=== PATIENT | male | born 1975 | race Caucasian/White ===

== ENCOUNTER 2016-09-06 16:28 | Emergency (ER) | payer OTHER ==
[2016-09-06 16:29] VITALS: BP 124/78; PULSE 85; RESP 16; TEMP 98.6; O2SAT 95
--- NOTE | 2016-09-06 16:48 | PD ---
Physical Exam Date Seen by Provider: Sep 06, 2016 Time Seen by Provider: 16:42 Data Data Last Documented VS Vital Signs Date Time Temp Pulse Resp B/P Pulse Ox O2 Delivery O2 Flow Rate FiO2 09/06/16 16:29 98.6 85 16 124/78 95 MDM Supervised Visit with JOSUÉ: No Narrative Course 41 YO M with complaint of rash behind the knees x 4 days. PATEL, back pain, L groin pain since this morning. Patient was in [facility] 08/27-. Vitals reviewed. Patient seen in triage, awaiting bed placement. Maria Alejandra Fagan Sep 06, 2016 16:48
[2016-09-06] MEDS ORDERED: SODIUM CHLOR 0.9% 1000 ML INJ 1,000 ML IV SCH (17:40)
--- NOTE | 2016-09-06 17:47 | PD ---
HPI Chief Complaint: Skin Problem Time Seen by Provider: 17:35 Travel History International Travel<30 days: No Contact w/Intl Traveler<30days: No Traveled to known affect area: No History of Present Illness HPI 41-year-old male presents for evaluation of rash. The patient was surfing in [facility] from August 27 the . He was surfing several hours a day, he reports that his board shorts were rubbing against the back of both knees. He developed a rash there for to 5 days ago which has been pruritic. Over the past few days it has become painful. He's also been having myalgias, chills and a headache. He was seen by his primary care physician Dr. Coronel today who prescribed him doxycycline and Levaquin, he has not yet started them. A physician friend of his recommended that he come to the emergency room for evaluation and this is what prompted the visit today. He has been having some pain associated with the lymph nodes in the left inguinal region as well. He denies any abdominal pain, dysuria, upper respiratory symptoms, widespread rash. He has no other complaints. [facility] Past Medical History Medical History: Denies Significant Hx Social History Alcohol Use: Yes Tobacco Use: No Allergies-Medications (Allergen,Severity, Reaction): Coded Allergies: No Known Allergies (Unverified , 09/06/16) Reported Meds & Prescriptions Reported Meds & Active Scripts Active No Active Prescriptions or Reported Medications Review of Systems Except as stated in HPI: all other systems reviewed are Neg Physical Exam Narrative GENERAL: Well developed well-nourished male in no acute distress SKIN: Warm and dry. Examination of the posterior aspect of both knees reveals some erythema and excoriated-appearing skin, left greater than right. There is some impetigo formation to the posterior left knee as well as some induration of the skin.. There is no joint effusion, no fluctuance. There is little bit of serous drainage on the left side. HEAD: Atraumatic. Normocephalic. EYES: Pupils equal and round. No scleral icterus. No injection or drainage. ENT: No nasal bleeding or discharge. Mucous membranes pink and moist. NECK: Trachea midline. No JVD. CARDIOVASCULAR: Regular rate and rhythm. No murmur appreciated. RESPIRATORY: No accessory muscle use. Clear to auscultation. Breath sounds equal bilaterally. GASTROINTESTINAL: Abdomen soft, non-tender, nondistended. Hepatic and splenic margins not palpable. MUSCULOSKELETAL: No obvious deformities. Skin as noted above. No joint swelling. No lower extremity pitting edema. Left inguinal lymphadenopathy is appreciated. NEUROLOGICAL: Awake and alert. No obvious cranial nerve deficits. Motor grossly within normal limits. Normal speech. PSYCHIATRIC: Appropriate mood and affect; insight and judgment normal. Data Data Last Documented VS Vital Signs Date Time Temp Pulse Resp B/P Pulse Ox O2 Delivery O2 Flow Rate FiO2 09/06/16 16:29 98.6 85 16 124/78 95 Orders Complete Blood Count With Diff (09/06/16 17:40) Comprehensive Metabolic Panel (09/06/16 17:40) Lactic Acid Sepsis Protocol (09/06/16 17:40) Blood Culture (09/06/16 17:40) Wound Culture And Gram Stain (09/06/16 17:40) Sodium Chlor 0.9% 1000 Ml Inj (Ns 1000 M (09/06/16 17:40) Doxycycline Inj (Vibramycin Inj) (09/06/16 18:45) Levofloxacin 500 Mg Premix Inj (Levaquin (09/06/16 18:45) Labs Laboratory Tests Test 09/06/16 18:00 White Blood Count 10.1 TH/MM3 Red Blood Count 4.91 MIL/MM3 Hemoglobin 14.0 GM/DL Hematocrit 42.4 % Mean Corpuscular Volume 86.3 FL Mean Corpuscular Hemoglobin 28.4 PG Mean Corpuscular Hemoglobin 32.9 % Concent Red Cell Distribution Width 13.5 % Platelet Count 179 TH/MM3 Mean Platelet Volume 8.2 FL Neutrophils (%) (Auto) 81.5 % Lymphocytes (%) (Auto) 11.0 % Monocytes (%) (Auto) 6.9 % Eosinophils (%) (Auto) 0.3 % Basophils (%) (Auto) 0.3 % Neutrophils # (Auto) 8.2 TH/MM3 Lymphocytes # (Auto) 1.1 TH/MM3 Monocytes # (Auto) 0.7 TH/MM3 Eosinophils # (Auto) 0.0 TH/MM3 Basophils # (Auto) 0.0 TH/MM3 CBC Comment DIFF FINAL Differential Comment Sodium Level 138 MEQ/L Potassium Level 3.8 MEQ/L Chloride Level 103 MEQ/L Carbon Dioxide Level 30.6 MEQ/L Anion Gap 4 MEQ/L Blood Urea Nitrogen 10 MG/DL Creatinine 0.88 MG/DL Estimat Glomerular Filtration 96 ML/MIN Rate Random Glucose 86 MG/DL Lactic Acid Level 0.8 mmol/L Calcium Level 9.0 MG/DL Total Bilirubin 1.2 MG/DL Aspartate Amino Transf 13 U/L (AST/SGOT) Alanine Aminotransferase 23 U/L (ALT/SGPT) Alkaline Phosphatase 75 U/L Total Protein 7.8 GM/DL Albumin 4.2 GM/DL [facility] Medical Decision Making Medical Screen Exam Complete: Yes Emergency Medical Condition: Yes Medical Record Reviewed: Yes Interpretation(s) CBC WBC 10.1, 81% neutrophils CMP essentially unremarkable Lactic acid within normal limits Differential Diagnosis Irritant contact dermatitis, cellulitis, impetigo, lymphangitis, abscess Narrative Course 41-year-old male who developed some skin irritation of the posterior aspect of both knees while surfing 4-5 days ago. He is now developed chills, myalgias, increasing pain and redness of the skin, left greater than right. Examination reveals likely an irritant contact dermatitis with superimposed cellulitis and impetigo changes. He also has left-sided inguinal lymphadenopathy. He otherwise appears well, he does not appear septic, he is not tachycardic or febrile. Plan is for basic lab work, wound culture, blood culture. The patient will be given empiric IV antibiotics. Lab work is essentially unremarkable. The patient is stable for discharge, outpatient follow-up, recommended taking the oral doxycycline and Levaquin that his primary care physician prescribed. Discussed signs and symptoms don't warrant returning to the emergency room. He is stable for discharge. Diagnosis Primary Impression: Irritant contact dermatitis Qualified Code: L24.9 - Irritant contact dermatitis, unspecified trigger Additional Impressions: Cellulitis Qualified Code: L03.119 - Cellulitis of lower extremity, unspecified laterality Impetigo Additional Instructions: Continue the antibiotics as prescribed. Keep the area clean, wash gently with soap and water and a daily basis. Follow-up close with primary care physician. Return for any acutely new or worsening symptoms. Med/Other Pt SpecificInfo: No Change to Meds Scripts No Active Prescriptions or Reported Meds Disposition: 01 DISCHARGE HOME Condition: Stable Dino Baker Sep 06, 2016 17:47
[2016-09-06 18:36] LABS: AUTOMATED NEUTROPHIL # 8.2 TH/MM3 (1.8-7.7); BASOPHIL % 0.3 % (0.0-2.0); EOSINOPHIL % 0.3 % (0.0-4.0); HEMATOCRIT 42.4 % (39.0-51.0); HEMO FLAGS DIFF FINAL; LYMPHOCYTE # 1.1 TH/MM3 (1.0-4.8); MEAN CELL VOLUME 86.3 FL (80.0-100.0); MEAN CORPUSCULAR HEMOGLOBIN 28.4 PG (27.0-34.0); MEAN CORPUSCULAR HGB CONC 32.9 % (32.0-36.0); MONO % 6.9 % (0.0-8.0); NEUT % 81.5 % (16.0-70.0); PLATELET COUNT 179 TH/MM3 (150-450); RED BLOOD COUNT 4.91 MIL/MM3 (4.50-5.90); RED CELL DISTRIBUTION WIDTH 13.5 % (11.6-17.2); WHITE BLOOD COUNT 10.1 TH/MM3 (4.0-11.0)
[2016-09-06] MEDS ORDERED: LEVOFLOXACIN 500 MG PREMIX INJ 100 ML IV ONE (18:45)
[2016-09-06] MEDS ORDERED: DOXYCYCLINE INJ 100 MG in SODIUM CHLORIDE 0.9% INJ 100 ML IV ONE (18:45)
[2016-09-06 18:55] LABS: ALT (GPT) 23 U/L (12-78); ANION GAP 4 MEQ/L (5-15); AST (GOT) 13 U/L (15-37); BICARBONATE 30.6 MEQ/L (21.0-32.0); BLOOD UREA NITROGEN 10 MG/DL (7-18); CHLORIDE 103 MEQ/L (98-107); GLOMERULAR FILTRATION RATE 96 ML/MIN (>89); POTASSIUM 3.8 MEQ/L (3.5-5.1); SODIUM (NA) 138 MEQ/L (136-145)
[2016-09-06 18:56] LABS: ALKALINE PHOSPHATASE 75 U/L (45-117); TOTAL BILIRUBIN ADULT 1.2 MG/DL (0.2-1.0)
[2016-09-06] MEDS ORDERED: KETOROLAC TROMETHAMINE 30 MG/ML (IVP) VIAL IV PUSH ONE (19:15)
[2016-09-06 19:18] VITALS: BP 120/60; PULSE 69; RESP 20; TEMP 99.7; O2SAT 97
[2016-09-06 20:11] VITALS: RESP 20
[2016-09-06 21:04] VITALS: BP 98/54
== END 2016-09-06 21:05 | disposition home or self-care (01) ==
LOC: NEPD 16:28
DX: L24.9 Irritant contact dermatitis, unspecified cause (principal); L03.119 Cellulitis of unspecified part of limb; B95.62 Methicillin resistant Staphylococcus aureus infection as the cause of diseases classified elsewhere
CPT/HCPCS: 80053; 83605; 85025; 86403; 87040; 87070; 87186; 96365; 96366; 96368; 96375; 99284; J1885; J1956; J7030; 87205